=== PATIENT | male | born 1970 | race Asian ===

== ENCOUNTER → 2023-01-13 | Outpatient (CLI) | payer MEDICARE ==
[2023-01-13 09:44] LABS: BASOPHIL % 0.1 % (0.0-0.2); EOSINOPHIL # 0.1 10^3/uL (0.0-0.2); EOSINOPHIL % 0.4 % (0.0-5.0); LYMPHOCYTES # 1.75 10^3/uL1 (1.0-4.8); LYMPHOCYTES % 7.7 % (24.0-44.0); MEAN CORP HGB 30.5 pg (26-34); MONOCYTES # 1.3 10^3/uL (0.3-0.8); MONOCYTES % 5.7 % (5.0-12.0); NEUTROPHIL # 18.4 10^3/uL (1.8-7.7); NEUTROPHILS % 81.4 % (41.0-85.0); PLATELET COUNT 549 10^3/uL (150-400); RED CELL DISTRIBUTION WIDTH 13.1 % (11.5-14.5)
[2023-01-13 10:00] LABS: CARBON DIOXIDE 22.5 mmol/L (20.0-32)
[2023-01-13 11:09] LABS: BAND NEUTROPHILS 3 % (2-6); BASOPHIL 0 % (0-2); EOSINOPHIL 0 % (1-4); LYMPHOCYTE 5 % (25-36); MONOCYTE 6 % (3-9); OTHER CELL TYPE 5; SEGMENTED NEUTROPHILS 81 % (31-76)
== END | disposition home or self-care (01) ==
LOC: NPLAB 09:29
PROVIDERS: ATTEND Internal Medicine
DX: L03.116 Cellulitis of left lower limb (principal); Z79.899 Other long term (current) drug therapy
CPT/HCPCS: 36415; 80053; 80202; 83036; 85025

== ENCOUNTER → 2023-01-20 | Outpatient (CLI) | payer MEDICARE, MEDICAID | END | disposition home or self-care (01) | LOC: NPLAB 11:55 | PROVIDERS: ATTEND Internal Medicine | DX: Z89.612 Acquired absence of left leg above knee (principal) | CPT/HCPCS: 36415; 80202 ==

== ENCOUNTER → 2023-01-30 | Outpatient (CLI) | payer MEDICARE, MEDICAID ==
[2023-01-30 08:40] LABS: BILIRUBIN,URINE NEGATIVE (NEGATIVE); UROBILINOGEN,URINE 0.2 E.U./dL (0.2)
== END | disposition home or self-care (01) ==
LOC: NPLAB 08:19
PROVIDERS: ATTEND Internal Medicine
DX: N39.0 Urinary tract infection, site not specified (principal)
CPT/HCPCS: 81001; 87086

== ENCOUNTER → 2023-02-08 | Outpatient (CLI) | payer MEDICARE, MEDICAID ==
[2023-02-08 08:56] LABS: BILIRUBIN,URINE NEGATIVE (NEGATIVE); UROBILINOGEN,URINE 0.2 E.U./dL (0.2)
== END | disposition home or self-care (01) ==
LOC: NPLAB 08:40
PROVIDERS: ATTEND Internal Medicine
DX: R33.9 Retention of urine, unspecified (principal)
CPT/HCPCS: 81001; 87086